=== PATIENT | female | born 1930 | race Two or more races ===

== ENCOUNTER 2017-12-12 18:21 | Inpatient (IN) | payer OTHER ==
[~2017-12-12] VITALS: Ht 152.4 cm; Wt 52.2 kg
[2017-12-12 20:00] VITALS: BP 133/61
--- NOTE | 2017-12-12 20:00 | NUR ---
Admitted a 87 y/o female from [facility], on 5150 hold, based on hold patient found wandered out of her house, patient has dementia who has worsening neuropsychiatric symptoms of paranoia who can not be cared for in this state by family members. Patient admitting dx. of psychosis and medical dx. of Hypertension, hyperlipidemia, hyponatremia, hypothyroidism. Upom face to face evaluation, patient appeared alert and oriented x 1, confused, disorganized, upset and wants to go home, redirected the patient, reality orientation provided, patient calm down and cooperated, patient has no sob, no acute distress, breathing even and unlabored, denies pain and discomfort, ambulatory with steady gait, denies si/hi, head to toe assessment done, skin intact, picture done, patient unable to sign paper works, belongings inspected for contraband checking, notified daughter of the admission, notified Dr. Jimenez and FOOD PREPARATION SUPERVISOR Bess Bernabe to reconcile medication. Kept clean, dry and comfortable. Will continue to monitor [id number] for safety
[2017-12-12] MEDS ORDERED: MAG HYDROX/AL HYDROX/SIMETH 30 ML UDC PO PRN (21:00)
[2017-12-12] MEDS ORDERED: LORAZEPAM 0.5 MG TABLET PO PRN (21:00)
[2017-12-12] MEDS ORDERED: ACETAMINOPHEN 325 MG TABLET PO PRN (21:00)
[2017-12-12] MEDS ORDERED: MAGNESIUM HYDROXIDE 30 ML UDC PO PRN (21:00)
[2017-12-12] MEDS ORDERED: TEMAZEPAM 7.5 MG CAPSULE PO PRN (21:00)
[2017-12-12] MEDS ORDERED: PRAV40TA3 PO (21:19)
[2017-12-12] MEDS ORDERED: AMLO10TA2 PO (21:19)
[2017-12-12] MEDS ORDERED: LEVO100T9 PO (21:19)
[2017-12-12] MEDS ORDERED: CYAN10009 PO (21:19)
[2017-12-12] MEDS ORDERED: METO-356 PO (21:19)
[2017-12-12 23:23] VITALS: BP 133/61
[2017-12-13 06:50] LABS: BASOPHILS % (AUTO) 0.4 % (0.0-2.0); EOSINOPHILS % (AUTO) 2.3 % (0.0-6.0); HEMATOCRIT 37 % (33-45); HEMOGLOBIN 12.4 g/dL (11.5-14.8); LYMPHOCYTES # (AUTO) 1.8 /CMM (0.8-4.8); LYMPHOCYTES % (AUTO) 37.8 % (20.0-44.0); MEAN CORPUSCULAR HEMOGLOBIN 30 PG (26.0-33.0); MEAN CORPUSCULAR HGB CONC 34 g/dl (31.0-36.0); MEAN CORPUSCULAR VOLUME 88 fL (82-100); MONOCYTES # (AUTO) 0.5 /CMM (0.1-1.30); MONOCYTES % (AUTO) 10.9 % (2.0-12.0); NEUTROPHILS # (AUTO) 2.3 /CMM (1.8-8.9); NEUTROPHILS % (AUTO) 48.6 % (43.0-81.0); PLATELET COUNT (AUTO) 226 /CMM (150-450); RDW COEFFICIENT OF VARIATION 13.7 (11.5-15.0); RED BLOOD CELL COUNT(AUTO) 4.17 MIL/uL (4.0-5.2); WHITE BLOOD COUNT (AUTO) 4.8 K/uL (4.3-11.0)
[2017-12-13 06:57] LABS: ALANINE AMINOTRANSFERASE 15 U/L (12-78); ALKALINE PHOSPHATASE 88 U/L (46-116); ASPARTATE AMINOTRANSFERASE 17 U/L (15-37); BILIRUBIN,TOTAL 0.6 mg/dL (0.2-1.0); CALCIUM, SERUM 8.4 mg/dL (8.5-10.1); CARBON DIOXIDE 27 mmol/L (21-32); CHLORIDE 109 mmol/L (98-107); CREATININE 0.8 mg/dL (0.6-1.3); GLUCOSE 87 mg/dL (74-106); POTASSIUM 3.7 mmol/L (3.5-5.1); SODIUM SERUM 142 mmol/L (136-145); TOTAL PROTEIN, SERUM 5.9 g/dL (6.4-8.2); UREA NITROGEN, BLOOD 9 mg/dL (7-18)
[2017-12-13 07:07] LABS: CHOLESTEROL 168 mg/dL (<200); HDL CHOLESTEROL 55 mg/dL (40-60); LDL 109 mg/dL (0-99); THYROID STIMULATING HORMONE 0.299 uIU/mL (0.358-3.74); TRIGLYCERIDES 82 mg/dL (30-150)
[2017-12-13] MEDS: LEVOTHYROXINE SODIUM 100 MCG TABLET PO SCH (09:06)
[2017-12-13] MEDS: AMLODIPINE BESYLATE 10 MG TABLET PO SCH (09:06)
[2017-12-13] MEDS: METOPROLOL SUCCINATE 25 MG TAB.SR.24H PO SCH (09:06)
[2017-12-13] MEDS: CYANOCOBALAMIN 500 MCG TABLET PO SCH (09:06)
[2017-12-13 09:10] VITALS: BP 110/66
--- NOTE | 2017-12-13 11:26 | NUR ---
Initial Discharge Plan: Pt resides at [address] [place] [address]. [address] [place] [id number]; with her daughter, Charlie Stokes (DPOA). Upon discharge, pt would like to return home. SW spoke to pts daughter, Clara who agreed that pt could return home. SW asked Clara to bring in [facility] paperwork; which she agreed to do on this date. Per pts daughter, pt also lives at the [facility] in [place] and alternates from one residence to the other. Clara also stated having care takers for her mother in both residences at all times. SW will follow up to ensure pt is safely and adequately discharged.
[2017-12-13 16:00] VITALS: BP 138/66
[2017-12-13] MEDS: QUETIAPINE FUMARATE 25 MG TABLET PO SCH (18:01)
[2017-12-13 20:38] VITALS: BP 130/72
[2017-12-13] MEDS: ATORVASTATIN 10 MG TABLET PO SCH (22:13)
[2017-12-14 08:00] VITALS: BP 119/75
[2017-12-14] MEDS: AMLODIPINE BESYLATE 10 MG TABLET PO SCH (08:25)
[2017-12-14] MEDS: METOPROLOL SUCCINATE 25 MG TAB.SR.24H PO SCH (08:25)
[2017-12-14] MEDS: LEVOTHYROXINE SODIUM 100 MCG TABLET PO SCH (08:26)
[2017-12-14] MEDS: CYANOCOBALAMIN 500 MCG TABLET PO SCH (08:26)
[2017-12-14] MEDS: QUETIAPINE FUMARATE 25 MG TABLET PO SCH ×2 (08:26→16:46)
--- NOTE | 2017-12-14 15:03 | NUR ---
SW received phone call from pts daughter Charlei Stokes who asked to speak with MD. SW informed pts daughter that she would speak to MD regarding call back to pts daughter for a pt status update. Pts daughter also informed SW that pt was agitated due to her wanting to see her dog. SW also informed pts daughter that she would contact her with additional updates received by MD.
--- NOTE | 2017-12-14 15:37 | NUR ---
UR NOTE: AZALIA faxed clinical review to Cassy spring encaser from [facility] ex:[phone].
[2017-12-14 16:00] VITALS: BP 140/75
--- NOTE | 2017-12-14 19:30 | NUR ---
RN NOTES-OPENING RECEIVED PT SITTING IN THE BREAK ROOM WATCHING TV, DAUGHTER AT BESIDE HER, NOTICED BILATERAL LOWER EXTREMITIES IS SWOLLEN, DENIES PAIN, NO SOB, WILL CONTINUE TO MONITOR
[2017-12-14 20:00] VITALS: BP 116/50
[2017-12-14 20:25] VITALS: BP 116/50
[2017-12-14] MEDS: ATORVASTATIN 10 MG TABLET PO SCH (21:35)
--- NOTE | 2017-12-14 22:00 | NUR ---
RN NOTES PT ALWAYS ASKING "WHERE IS SHE", " WHY SHE'S IN THE HOSPITAL". EXPLAINED TO THE PATIENT THAT SHE'S IN THE HOSPITAL AND WHY SHE'S HERE BUT AFTER AN HOUR SHE'S GOING TO ASKED THE SAME QUESTIONS
--- NOTE | 2017-12-15 | NUR ---
RN NOTES PT SLEPT , OFF LOAD LOWER EXTREMITIES
--- NOTE | 2017-12-15 06:00 | NUR ---
RN NOTES PT REFUSED TO HAVE A BATHE WELL MORNING CARE, CHARGE NURSE MADE AWARE
--- NOTE | 2017-12-15 06:55 | NUR ---
RN NOTES PT. DAUGHTER CALLED AND INFORMED ME THAT SHE'S GOING TO TAKE HER MOTHER HOME. EXPLAINED TO THE DAUGHTER THAT THE DOCTOR NEED TO RELEASE THE PATIENT BECAUSE PT. IS ON HOLD BUT SEEMS PT. DAUGHTER IS REALLY DETERMINED TO TAKE HER MOTHER HOME EVEN WE EXPLAINED EVERYTHING TO HER. CHARGE NURSE MADE AWARE
[2017-12-15 08:00] VITALS: BP 136/73
[2017-12-15] MEDS: LEVOTHYROXINE SODIUM 100 MCG TABLET PO SCH (08:06)
[2017-12-15 08:16] VITALS: BP 136/73
[2017-12-15] MEDS: METOPROLOL SUCCINATE 25 MG TAB.SR.24H PO SCH (08:16)
[2017-12-15] MEDS: CYANOCOBALAMIN 500 MCG TABLET PO SCH (08:16)
[2017-12-15] MEDS: AMLODIPINE BESYLATE 10 MG TABLET PO SCH (08:16)
[2017-12-15] MEDS: QUETIAPINE FUMARATE 25 MG TABLET PO SCH (08:16)
--- NOTE | 2017-12-15 09:46 | NUR ---
AZALIA received a voicemail from pts daughter Charlie Stokes stating that she was going to come on this day to pharmacy picking technician pt due to her being unhappy with pts care at the hospital. Pts daughter stated that she did not care about the legal hold and that she was going to come to the hospital to take pt home. AZALIA has contacted loading and unloading supervisor to make her aware and will contact pts MD to inform him.
--- NOTE | 2017-12-15 10:28 | NUR ---
pts daughter Charlie Stokes came to the unit demanding to take pt home. Mill Laborer spoke with pts daughter regarding pts legal hold and under legal law not being able to take pt home without MD approval. Mill Laborer and SW explained to pts daughter that pt was assigned to MD sales director and he will come to evaluate pt and SW will notify pts daughter if pt is able to discharge on this day. SW also informed pts daughter and granddaughter that security will be called if the family did not cooperate with hospital rules and regulations. Pts daughter understood.
--- NOTE | 2017-12-15 12:07 | NUR ---
YANNI LANE MADE AWARE THAT PT. IS DISCHARGE AGAINST MEDICAL ADVICE.
--- NOTE | 2017-12-15 12:15 | NUR ---
GPS/RN-NOTES PATIENT WAS DISCHARGE AMA PER DR. RAYA. DRAMA DIRECTOR ARIANA MADE AWARE. PATIENT DID NOT VERBALIZE SI/HI,DENIES VISUAL/AUDITORY HALLUCINATIONS AT TIME OF DISCHARGE. PATIENT LEFT THE UNIT WITH ALL HER BELONGINGS, IN STABLE CONDITION AMBULATORY WITH STEADY GAIT. RIBBON CUTTER BY HER DAUGHTER HESHAM WOODY VIA PRIVATE CAR. SHE WAS ASSISTED BY ACTIVITY STAFF IN THE LOBBY FOR SAFETY.
--- NOTE | 2017-12-15 14:25 | NUR ---
DISCHARGE NOTE: Pt was discharged at 12:15pm home to [address] [facility] [address] [facility] [address] via private vehicle by daughter Clara [phone] AGAINST MEDICAL ADVICE per pts daughters request. Pt appeared in a euthymic mood with congruent affect. Pt denied visual/auditory hallucinations and denied suicidal/homicidal ideations. SW encouraged and advised pts daughter to schedule a follow up appointment with pts psychiatrist Dr. Will Gutierrez [address] [facility] [address] [address] p[address] Doretha Pérez [address] [address] . The multidisciplinary exitcare form was done, printed, signed, and given to the patient.
--- NOTE | 2017-12-19 14:48 | NUR ---
UR UPDATED NOTE: AZALIA faxed psychiatric discharge summary to Cassy catalytic case operator from [facility] ex:[phone]
== END 2017-12-15 12:15 | disposition left against medical advice (07) | DRG 885 ==
LOC: GPS 19:43
PROVIDERS: ADMIT Psychiatry & Neurology Psychiatry; ATTEND Psychiatry & Neurology Psychiatry
DX: F29 Unspecified psychosis not due to a substance or known physiological condition (principal); N39.0 Urinary tract infection, site not specified; E44.0 Moderate protein-calorie malnutrition; F03.91 Unspecified dementia, unspecified severity, with behavioral disturbance; F32.9 Major depressive disorder, single episode, unspecified; E78.5 Hyperlipidemia, unspecified; Z73.6 Limitation of activities due to disability; I10 Essential (primary) hypertension; E53.8 Deficiency of other specified B group vitamins; E03.9 Hypothyroidism, unspecified; Z79.899 Other long term (current) drug therapy
CPT/HCPCS: 36415; 71045-TC; 80053-TC; 80061-TC; 84443-TC; 85025-TC; 87081-TC